=== PATIENT | female | born 2000 | race Caucasian/White ===

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

== ENCOUNTER 2018-06-26 20:26 | Emergency (ER) | payer OTHER ==
[~2018-06-26] VITALS: Ht 157.5 cm; Wt 68.0 kg
[2018-06-26 20:34] VITALS: BP 111/64
--- NOTE | 2018-06-26 20:38 | NUR ---
PT AMBULATED TO BED 9 WITH VSS. PROVIDING URINE.
--- NOTE | 2018-06-26 20:45 | NUR ---
PT BIB SELF C/O URINARY FREQUENCY, DISCOMFORT, AND HEMATURIA. PT SITTING IN BED, FRIEND AT BEDSIDE. NO PMH, ALLERGY TO SULFA
[2018-06-26 22:28] LABS: APPEARANCE,URINE SLIGHTLY CLOUDY (CLEAR); BILIRUBIN,URINE NEGATIVE (NEGATIVE); BLOOD, URINE 2+ (NEGATIVE); COLOR,URINE YELLOW (YELLOW); LEUKOCYTE ESTERASE ,URINE TRACE (NEGATIVE); NITRITE, URINE NEGATIVE (NEGATIVE); UGLUCOSE NEGATIVE (NEGATIVE)
[2018-06-26 22:29] LABS: RBC,URINE 11-20 (MOD) /HPF (0-5)
--- NOTE | 2018-06-26 23:24 | NUR ---
DR FLANAGAN AT BEDSIDE EVALUATING PT.
--- NOTE | 2018-06-26 23:43 | NUR ---
PT SITTING IN BED, VSS, WILL CONTINUE TO MONITOR.
[2018-06-26] MEDS ORDERED: PHENAZOPYRIDINE 100 MG TAB PO ONE (23:55)
[2018-06-26] MEDS ORDERED: CEPHALEXIN 500 MG CAP PO ONE (23:55)
[2018-06-27 00:25] VITALS: BP 106/74
== END 2018-06-27 00:25 | disposition home or self-care (01) ==
LOC: MED 20:26
DX: N39.0 Urinary tract infection, site not specified (principal)
CPT/HCPCS: 81001; 81025; 87086; 87186; 99284

== ENCOUNTER 2021-12-10 02:35 | Emergency (ER) | payer OTHER ==
[~2021-12-10] VITALS: Ht 157.5 cm; Wt 63.0 kg
[2021-12-10 02:43] VITALS: BP 106/66
--- NOTE | 2021-12-10 02:48 | NUR ---
Patient ambulated to bed 6.
--- NOTE | 2021-12-10 02:52 | NUR ---
Dr. Riddle examining patient.
[2021-12-10] MEDS ORDERED: NACL 0.9% 1,000 ML IV ONE (02:55)
[2021-12-10] MEDS ORDERED: ONDANSETRON 4 MG/2 ML VIAL IVP ONE (02:55)
--- NOTE | 2021-12-10 03:19 | NUR ---
AMBULATED TO BR
--- NOTE | 2021-12-10 03:22 | NUR ---
20G IV CATH EST LEFT AC. LABS AT BEDSIDE. BOLUS INFUSING. PT IS RESTING IN BED SIDE RAILS UP
[2021-12-10] MEDS ORDERED: LOPE-289 PO (03:27)
[2021-12-10] MEDS ORDERED: ONDA-188 PO (03:27)
[2021-12-10 03:50] VITALS: BP 106/66
--- NOTE | 2021-12-10 03:50 | NUR ---
Patient discharged with v/s stable. Written and verbal after care instructions given and explained. Patient alert, oriented and verbalized understanding of instructions. Ambulatory with steady gait. All questions addressed prior to discharge. ID band removed. Patient advised to follow up with PMD. Rx of LOPERAMIDE HCI ONDANSETRON given. Patient educated on indication of medication including possible reaction and side effects. Opportunity to ask questions provided and answered.
--- NOTE | 2021-12-10 03:50 | NUR ---
Note cristalone in EDM - 12/10/21 at 0357 by OBEY Patient discharged with v/s stable. Written and verbal after care instructions given and explained. Patient alert, oriented and verbalized understanding of instructions. Ambulatory with steady gait. All questions addressed prior to discharge. ID band removed. Patient advised to follow up with PMD. Rx of Zofran and Imodium given. Patient educated on indication of medication including possible reaction and side effects. Opportunity to ask questions provided and answered.
--- NOTE | 2021-12-10 03:52 | NUR ---
IV CATH DC
== END 2021-12-10 03:50 | disposition home or self-care (01) ==
LOC: MED 02:35
DX: R11.2 Nausea with vomiting, unspecified (principal); R19.7 Diarrhea, unspecified
CPT/HCPCS: 96361; 96374; 99283; J2405; J7030